=== PATIENT | male | born 1985 | race Caucasian/White ===

== ENCOUNTER 2024-06-25 20:49 | Emergency (ER) | payer OTHER ==
[2024-06-25] MEDS: KETOROLAC 15 MG/ML 1 ML VIAL IVP STA (21:48)
[2024-06-25 21:54] LABS: Basophils # (A) 0.06 10*3/uL (0.00-0.10); Basophils % (A) 0.5 %; Eosinophils # (A) 0.29 10*3/uL (0.04-0.35); Eosinophils % (A) 2.3 %; HCT 44.7 % (39.6-50.0); HGB 15.5 g/dL (13.0-17.0); Lymphocytes # (A) 3.64 10*3/uL (0.90-5.00); Lymphocytes % (A) 28.3 %; MCH 30.2 pg (27.0-32.0); MCHC 34.7 g/dL (32.0-37.0); Monocytes # (A) 1.11 10*3/uL (0.20-1.00); Monocytes % (A) 8.6 %; Neutrophils # (A) 7.74 10*3/uL (1.80-7.70); Neutrophils % (A) 60.1 %; Platelet Count 311 10*3/uL (140-440); RBC 5.14 10*6/uL (4.40-5.60); RDW 13.8 % (11.5-14.5); WBC 12.87 10*3/uL (4.50-10.00)
--- NOTE | 2024-06-25 21:56 | US ---
EXAMINATION TYPE: US venous doppler duplex LE LT DATE OF EXAM: 06/25/2024 9:11 PM COMPARISON: NONE CLINICAL INDICATION: Male, 39 years old with history of pain; Pain started 12.5 hours ago. No hx of D VT. Patient does not take blood thinners. TECHNIQUE: The lower extremity deep venous system is examined utilizing real time linear array sonog tyson with graded compression, color doppler sonography, and spectral doppler. SIDE PERFORMED: Left FINDINGS: VESSELS IMAGED: Common Femoral Vein Deep Femoral Vein Greater Saphenous Vein * Femoral Vein Popliteal Vein Small Saphenous Vein * Proximal Calf Veins (* superficial vessels) Left Leg: No evidence of DVT, however exam is limited. Patient could not tolerate compression of mid or distal femoral vein due to pain level. Color flow is seen within all vessels imaged. Unable to visualize left peroneal veins. IMPRESSION: No evidence of DVT [facility], , 06/25/2024 9:54 PM
[2024-06-25 22:14] LABS: ALT 32 U/L (4-49); AST 25 U/L (17-59); African American GFR (CKD) >90 (>60 ml/min/1.73 sqM); Alkaline Phosphatase 110 U/L (38-126); Anion Gap 7 mmol/L; Blood Urea Nitrogen 16 mg/dL (9-20); C Reactive Protein 0.6 mg/dL (<1.0); Calcium 9.6 mg/dL (8.4-10.2); Carbon Dioxide 26 mmol/L (22-30); Chloride 103 mmol/L (98-107); Glucose 110 mg/dL (74-99); Non-African American GFR(CKD) >90 (>60 ml/min/1.73 sqM); Potassium 4.2 mmol/L (3.5-5.1); Sodium 136 mmol/L (137-145); Total Bilirubin 0.4 mg/dL (0.2-1.3); Total Protein 6.9 g/dL (6.3-8.2)
--- NOTE | 2024-06-25 22:33 | XR ---
EXAMINATION TYPE: XR tibia fibula LT DATE OF EXAM: 06/25/2024 10:01 PM COMPARISON: None. CLINICAL INDICATION: Male, 39 years old with history of pain, pain TECHNIQUE: XR tibia fibula LT views were obtained FINDINGS: There is no acute fracture/dislocation evident. The joint spaces appear within normal limits. The o verlying soft tissue appears unremarkable. IMPRESSION: No acute fracture or dislocation seen. [facility], , 06/25/2024 10:31 PM
--- NOTE | 2024-06-25 23:44 | ED ---
Extremity Problem HPI - General Chief complaint: Extremity Problem,Nontraumatic Stated complaint: L Leg Pain Time Seen by Provider: 06/25/24 21:03 Source: patient Mode of arrival: ambulatory Limitations: no limitations - History of Present Illness Initial comments: 39-year-old male presenting with chief complaint of left lower leg pain. States that it started today when he woke up. It hurts to flex his foot and hurts to walk. He does have a small area of swelling near the front of the left lower leg. Denies any injury or trauma. There is localized tenderness. No numbness or tingling. No fevers or chills. He took Motrin today with little relief. - Related Data Previous Rx's Medication Instructions Recorded HYDROcodone/APAP 5-325MG [[place] 1 tab PO Q6HR PRN 3 Days #12 tab 04/24/22 5-325] clindamycin HCL 300 mg PO TID 7 Days #21 capsule 04/24/22 Cephalexin [Keflex] 500 mg PO Q6HR 7 Days #28 cap 06/25/24 Sulfamethox-Tmp 800-160Mg [Bactrim 1 tab PO Q12HR 7 Days #14 tab 06/25/24 DS 800-160 mg] Allergies Allergy/AdvReac Type Severity Reaction Status Date / Time No Known Allergies Allergy Verified 06/25/24 20:53 Review of Systems ROS Statement: Those systems with pertinent positive or pertinent negative responses have been documented in the HPI. ROS Other: All systems not noted in ROS Statement are negative. Past Medical History Past Medical History: No Reported History Past Surgical History: Appendectomy Past Psychological History: No Psychological Hx Reported, ADD/ADHD Smoking Status: Current every day smoker Past Alcohol Use History: Occasional Past Drug Use History: Marijuana General Exam Limitations: no limitations General appearance: alert, in no apparent distress Head exam: Present: atraumatic, normocephalic, normal inspection Eye exam: Present: normal appearance, EOMI Neck exam: Present: normal inspection. Absent: meningismus Respiratory exam: Absent: respiratory distress Cardiovascular Exam: Present: regular rate Left Lower Leg exam: Present: full ROM, tenderness (Localized to quarter sized area in the anterior lower portion), swelling (Localized to quarter sized area in the anterior lower portion) Neurovascular tendon exam: Present: no vascular compromise Neurological exam: Present: alert, oriented X3 Psychiatric exam: Present: normal affect, normal mood Skin exam: Present: warm, dry, erythema Course Vital Signs 06/25/24 06/25/24 20:50 23:57 Temperature 98.3 F 98.0 F Pulse Rate 97 82 Respiratory 18 16 Rate Blood Pressure 133/90 106/71 O2 Sat by Pulse 99 98 Oximetry Medical Decision Making - Medical Decision Making Was pt. sent in by a medical professional or institution (, PA, DIESEL MAINTENANCE TECHNICIAN, urgent care, hospital, or jail...) When possible be specific @ -No Did you speak to anyone other than the patient for history (EMS, parent, family, police, friend...)? What history was obtained from this source @ -No Did you review nursing and triage notes (agree or disagree)? Why? @ -I reviewed and agree with nursing and triage notes Were old charts reviewed (outside hosp., previous admission, EMS record, old EKG, old radiological studies, urgent care reports/EKG's, jail records)? Report findings @ -No old charts were reviewed Differential Diagnosis (chest pain, altered mental status, abdominal pain women, abdominal pain men, vaginal bleeding, weakness, fever, dyspnea, syncope, headache, dizziness, GI bleed, back pain, seizure, CVA, palpatations, mental health, musculoskeletal)? @ -Differential Musculoskeletal Muscular strain, contusion, ligament sprain, fracture, arthritis, septic arthritis, bursitis, cellulitis, muscle spasm, nerve compression, DVT, arterial occlusion, herpes zoster, electrolyte abnormality, tumor.... This is not meant to be in all inclusive list EKG interpreted by me (3pts min.). @ -As above X-rays interpreted by me (1pt min.). @ -X-ray negative for fracture or dislocation CT interpreted by me (1pt min.). @ -None done U/S interpreted by me (1pt. min.). @ -Ultrasound negative for DVT What testing was considered but not performed or refused? (CT, X-rays, U/S, lab s)? Why? @ -None What meds were considered but not given or refused? Why? @ -None Did you discuss the management of the patient with other professionals (professionals i.e. , Z[facility], DIESEL MAINTENANCE TECHNICIAN, lab, RT, psych nurse, adoption social worker, well head pumper, teacher, supervisory cbp officer, case hardener)? Give summary @ -No Was smoking cessation discussed for >3mins.? @ -No Was critical care preformed (if so, how long)? @ -No Were there social determinants of health that impacted care today? How? (Homelessness, low income, unemployed, alcoholism, drug addiction, transportation, low edu. Level, literacy, decrease access to med. care, skilled nursing, rehab)? @ -No Was there de-escalation of care discussed even if they declined (Discuss DNR or withdrawal of care, Hospice)? DNR status @ -No What co-morbidities impacted this encounter? (DM, HTN, Smoking, COPD, CAD, Cancer, CVA, ARF, Chemo, Hep., AIDS, mental health diagnosis, sleep apnea, morbid obesity)? @ -None Was patient admitted / discharged? Hospital course, mention meds given and route, prescriptions, significant lab abnormalities, going to OR and other pertinent info. @ -39-year-old male presenting with chief complaint of pain to the front of the left lower leg. He is neurovascularly intact. X-ray negative for fracture dislocation ultrasound negative for DVT. On examination there appears to be a small area of cellulitis. Patient is educated on today's findings. We will start him on Keflex and Bactrim. Follow-up with PCP. Report back to ER with any new or worsening symptoms. Discussed return parameters and answered all questions. Patient conveyed verbal understanding and agreed to the plan. I discussed this case in detail with my attending Dr. Rodriguez Undiagnosed new problem with uncertain prognosis? @ -No Drug Therapy requiring intensive monitoring for toxicity (Heparin, Nitro, Insulin, Cardizem)? @ -No Were any procedures done? @ -No Diagnosis/symptom? @ -Cellulitis Acute, or Chronic, or Acute on Chronic? @ -Acute Uncomplicated (without systemic symptoms) or Complicated (systemic symptoms)? @ -Uncomplicated Side effects of treatment? @ -No Exacerbation, Progression, or Severe Exacerbation? @ -No Poses a threat to life or bodily function? How? (Chest pain, [place], [place], pneumonia, PE, COPD, DKA, ARF, appy, cholecystitis, CVA, Diverticulitis, Homicidal, Suicidal, threat to staff... and all critical care pts) @ -Unlikely at this time - Lab Data Result diagrams: 06/25/24 21:46 06/25/24 21:46 Lab Results 06/25/24 06/25/24 Range/Units 21:46 21:46 WBC 12.87 H (4.50-10.00) 10*3/uL RBC 5.14 (4.40-5.60) 10*6/uL Hgb 15.5 (13.0-17.0) g/dL Hct 44.7 (39.6-50.0) % MCV 87.0 (80.0-97.0) fL MCH 30.2 (27.0-32.0) pg MCHC 34.7 (32.0-37.0) g/dL Plt Count 311 (140-440) 10*3/uL MPV 9.0 L (9.5-12.2) fL Immature Gran % (Auto) 0.2 % Neutrophils % 60.1 % Lymphocytes % 28.3 % Monocytes % 8.6 % Eosinophils % 2.3 % Basophils % 0.5 % Immature Gran # 0.03 (0.00-0.04) 10*3/uL Neutrophils # 7.74 H (1.80-7.70) 10*3/uL Lymphocytes # 3.64 (0.90-5.00) 10*3/uL Monocytes # 1.11 H (0.20-1.00) 10*3/uL Eosinophils # 0.29 (0.04-0.35) 10*3/uL Basophils # 0.06 (0.00-0.10) 10*3/uL Sodium 136 L (137-145) mmol/L Potassium 4.2 (3.5-5.1) mmol/L Chloride 103 (98-107) mmol/L Carbon Dioxide 26 (22-30) mmol/L Anion Gap 7 mmol/L BUN 16 (9-20) mg/dL Creatinine 0.73 (0.66-1.25) mg/dL Est GFR (CKD-EPI)AfAm >90 (>60 ml/min/1.73 sqM) Est GFR (CKD-EPI)NonAf >90 (>60 ml/min/1.73 sqM) Glucose 110 H (74-99) mg/dL Calcium 9.6 (8.4-10.2) mg/dL Total Bilirubin 0.4 (0.2-1.3) mg/dL AST 25 (17-59) U/L ALT 32 (4-49) U/L Alkaline Phosphatase 110 (38-126) U/L C-Reactive Protein 0.6 (<1.0) mg/dL Total Protein 6.9 (6.3-8.2) g/dL Albumin 4.0 (3.5-5.0) g/dL Disposition Clinical Impression: Cellulitis Disposition: HOME SELF-CARE Condition: Good Instructions (If sedation given, give patient instructions): Cellulitis (ED) Additional Instructions: Follow-up with PCP. Report back to ER with any new or worsening symptoms. Take Motrin and Tylenol as needed for pain. Take medication as prescribed. Prescriptions: Sulfamethox-Tmp 800-160Mg [Bactrim DS 800-160 mg] 1 tab PO Q12HR 7 Days #14 tab Cephalexin [Keflex] 500 mg PO Q6HR 7 Days #28 cap Is patient prescribed a controlled substance at d/c from ED?: No Referrals: None,Stated [Primary Care Provider] - 1-2 days Forms: Area PCPs Time of Disposition: 23:43
[2024-06-25] MEDS: CEPHALEXIN 500 MG CAP PO STA (23:54)
[2024-06-25] MEDS: ACETAMINOPHEN TAB 500 MG TAB PO STA (23:54)
[2024-06-25] MEDS: SULFAMETHOX-TMP 800-160MG 1 EACH TAB PO STA (23:54)
[2024-06-26 00:03] VITALS: BP 106/71; PULSE 82; RESP 16; TEMP 98
== END 2024-06-25 23:57 | disposition home or self-care (01) ==
LOC: EC 20:49
DX: L03.90 Cellulitis, unspecified (principal); F17.200 Nicotine dependence, unspecified, uncomplicated
CPT/HCPCS: 36415; 80053; 85025; 86140; 73590; 93971; 99284; 96374; J1885